=== PATIENT | male | born 1950 | race African-American/Black ===

== ENCOUNTER 2017-10-18 09:40 | Emergency (ER) | payer MEDICARE, BC ==
[2017-10-18 09:48] VITALS: BP 145/96
--- NOTE | 2017-10-18 10:05 | ER Document Report ---
ED Medical Screen (RME) - General Chief Complaint: Back Pain Stated Complaint: BLOOD IN URINE Time Seen by Provider: 10/18/17 09:56 Notes: RAPID MEDICAL EVALUATION DISCLOSURE I have seen this patient as part of a Rapid Medical Evaluation and, if applicable, placed any initially appropriate orders. The patient will be seen and fully evaluated, including a full history and physical exam, by a provider ( in Main ED or Fast Track) when a room becomes available. 67-year-old male PMH BPH status post TURP 2 years ago here with complaints of lower back pain and bloody urine (several blood clots) that he noticed yesterday morning. He reports that it reminded him of the issues he was having 2 years ago around the time of his TURP. He does not have any abdominal pain nausea vomiting dysuria frequency. He does report some heavy lifting 2 weeks ago but does not know if this is related. He denies prior history of prostate cancer however his PSA level was elevated on routine blood work ( has report with her) performed in August of this year. EXAM CTAB RRR No abdominal TTP No lumbar back TTP - Related Data Allergies/Adverse Reactions: iodine Allergy (Verified 10/18/17 09:42) Penicillins Allergy (Verified 10/18/17 09:42) Past Medical History - Past Medical History Cardiac Medical History: Reports: Hx Hypertension Musculoskeltal Medical History: Reports Hx Arthritis, Reports Hx Gout Past Surgical History: Reports: Hx Orthopedic Surgery - Holman's cyst surgery, Hx Vascular Surgery - Right ankle venous surgery - Immunizations Immunizations up to date: Yes Physical Exam - Vital signs Vitals: Temp Pulse Resp BP Pulse Ox 98.0 F 81 16 145/96 H 94 10/18/17 09:46 10/18/17 09:46 10/18/17 09:46 10/18/17 09:46 10/18/17 09:46 Course - Vital Signs Vital signs: Temp Pulse Resp BP Pulse Ox 98.0 F 81 16 145/96 H 94 10/18/17 09:46 10/18/17 09:46 10/18/17 09:46 10/18/17 09:46 10/18/17 09:46
--- NOTE | 2017-10-18 10:31 | ER Document Report ---
ED General - General Chief Complaint: Back Pain Stated Complaint: BLOOD IN URINE Time Seen by Provider: 10/18/17 09:56 Mode of Arrival: Ambulatory Information source: Patient - HPI Onset: Yesterday Onset/Duration: Sudden Quality of pain: Dull Severity: Mild - VERY VAGUE Associated symptoms: None. denies: Chills, Fever, Leg swelling, Nausea, Vomiting Exacerbated by: Denies Relieved by: Denies Similar symptoms previously: Yes - AFTER TURP Recently seen / treated by doctor: No - Related Data Allergies/Adverse Reactions: iodine Allergy (Verified 10/18/17 10:45) Penicillins Allergy (Verified 10/18/17 10:45) Past Medical History - General Information source: Patient - Social History Smoking Status: Former Smoker Cigarette use (# per day): No Chew tobacco use (# tins/day): No Frequency of alcohol use: None Drug Abuse: None Lives with: Spouse/Significant other Family History: Reviewed & Not Pertinent Patient has suicidal ideation: No Patient has homicidal ideation: No - Past Medical History Cardiac Medical History: Reports: Hx Hypertension Pulmonary Medical History: Reports: None Neurological Medical History: Reports: None Renal/ Medical History: Reports: Hx Benign Prostatic Hyperplasia. Denies: Hx Peritoneal Dialysis Malignancy Medical History: Reports None GI Medical History: Reports: None Musculoskeltal Medical History: Reports Hx Arthritis, Reports Hx Gout Psychiatric Medical History: Reports: None Past Surgical History: Reports: Hx Herniorrhaphy, Hx Orthopedic Surgery - Holman' s cyst surgery, Hx Vascular Surgery - Right ankle venous surgery - Immunizations Immunizations up to date: Yes Review of Systems - Review of Systems Constitutional: No symptoms reported EENT: No symptoms reported Cardiovascular: No symptoms reported Respiratory: No symptoms reported Gastrointestinal: No symptoms reported Genitourinary: See HPI Musculoskeletal: See HPI Skin: No symptoms reported Neurological/Psychological: No symptoms reported Physical Exam - Vital signs Vitals: Temp Pulse Resp BP Pulse Ox 98.0 F 81 16 145/96 H 94 10/18/17 09:46 10/18/17 09:46 10/18/17 09:46 10/18/17 09:46 10/18/17 09:46 Interpretation: Hypertensive. No: Tachycardic, Tachypneic, Febrile - General General appearance: Appears well, Alert In distress: None - HEENT Head: Normocephalic Eyes: Normal Conjunctiva: Normal Ears: Normal Nasal: Normal Mouth/Lips: Normal Mucous membranes: Normal Pharynx: Normal Neck: Normal - Respiratory Respiratory status: No respiratory distress - Cardiovascular Rhythm: Regular - Abdominal Inspection: Normal Distension: No distension - Back Back: Normal. No: CVA tenderness - Extremities General upper extremity: Normal inspection General lower extremity: Normal inspection. No: Tender, Edema - Neurological Neuro grossly intact: Yes Cognition: Normal Orientation: AAOx4 - Psychological Associated symptoms: Normal affect, Normal mood - Skin Skin Temperature: Warm Skin Moisture: Dry Skin Color: Normal Skin Turgor: Elastic Course - Re-evaluation Re-evalutation: 10/18/17 13:47 Patient remains relatively asymptomatic. He states the hematuria appears to be resolving. Results of laboratory and radiographic evaluation discussed with patient and spouse. He will call his urologist tomorrow for follow-up. - Vital Signs Vital signs: Temp Pulse Resp BP Pulse Ox 98.0 F 81 16 145/96 H 94 10/18/17 09:46 10/18/17 09:46 10/18/17 09:46 10/18/17 09:46 10/18/17 09:46 - Laboratory Result Diagrams: 10/18/17 10:20 10/18/17 10:20 Laboratory results interpreted by me: 10/18/17 10/18/17 10/18/17 10:20 10:20 10:20 MCH 26.9 L RDW 14.7 H Monocytes % 17.4 H Carbon Dioxide 32 H Est GFR (Non-Af Amer) 58 L Glucose 131 H Urine Protein 100 H Urine Glucose (UA) 50 H Urine Blood LARGE H Discharge - Discharge Clinical Impression: Hematuria Qualifiers: Hematuria type: gross Qualified Code(s): R31.0 - Gross hematuria BPH (benign prostatic hyperplasia) Qualifiers: Lower urinary tract symptom presence: unspecified whether lower urinary tract symptoms present Qualified Code(s): N40.0 - Benign prostatic hyperplasia without lower urinary tract symptoms Condition: Stable Disposition: HOME, SELF-CARE Instructions: Hematuria ([facility]) Additional Instructions: TAKE ANTIBIOTIC DIRECTED. DRINK PLENTY OF FLUIDS. TOMORROW, CALL YOUR UROLOGIST TO SEEK APPOINTMENT FOR FURTHER EVALUATION. YOU LIKELY WILL NEED A CYSTOSCOPY. RETURN TO E.R. IF PROBLEMS, ANY TIME. Prescriptions: Ciprofloxacin HCl [Cipro 500 mg Tablet] 500 mg PO BID #20 tablet
[2017-10-18 10:48] LABS: ABSOLUTE EOSINOPHILS # (AUTO) 0.3 10^3/uL (0.0-0.6); ABSOLUTE MONOCYTES (AUTO) 1.3 10^3/uL (0.1-1.4); ABSOLUTE NEUT (AUTO) 4.1 10^3/uL (1.7-8.2); BASOPHILS % (AUTO) 0.4 % (0-2); EOSINOPHILS % (AUTO) 3.9 % (0-6); HEMOGLOBIN 14.3 g/dL (13.5-17.0); LYMPHOCYTES % (AUTO) 25.3 % (13-45); MEAN CORPUSCULAR HEMOGLOBIN 26.9 pg (27.0-33.4); MEAN CORPUSCULAR HGB CONC 33.2 g/dL (32.0-36.0); MEAN CORPUSCULAR VOLUME 81 fl (80-97); MONOCYTES % (AUTO) 17.4 % (3-13); PLATELET COUNT 236 10^3/uL (150-450); RED BLOOD COUNT 5.29 10^6/uL (4.35-5.55); RED CELL DISTRIBUTION WIDTH 14.7 % (11.5-14.0); TOTAL CELLS COUNTED % (AUTO) 100 %; WHITE BLOOD COUNT 7.7 10^3/uL (4.0-10.5)
[2017-10-18 11:02] LABS: APPEARANCE,URINE CLEAR; BILIRUBIN,URINE NEGATIVE (NEGATIVE); COLOR,URINE RED; GLUCOSE, URINE 50 mg/dL (NEGATIVE); KETONES,URINE NEGATIVE (NEGATIVE); LEUKOCYTE ESTERASE,URINE NEGATIVE (NEGATIVE); NITRITE,URINE NEGATIVE (NEGATIVE); PROTEIN,URINE 100 mg/dL (NEGATIVE); URINE SPECIFIC GRAVITY 1.015; UROBILINOGEN,URINE NEGATIVE mg/dL (<2.0)
[2017-10-18] MEDS ORDERED: METHYLPREDNISOLONE INJ 125 MG/2 ML SDV IV ONE (11:05)
[2017-10-18] MEDS ORDERED: FAMOTIDINE INJ/PF 20 MG/2 ML SDV IV ONE (11:05)
[2017-10-18] MEDS ORDERED: DIPHENHYDRAMINE HCL 50 MG/ML VIAL IV ONE (11:06)
[2017-10-18 11:12] LABS: ALANINE AMINOTRANSFERASE 25 U/L (21-72); ALBUMIN 3.7 g/dL (3.5-5.0); ALKALINE PHOSPHATASE 91 U/L (38-126); ANION GAP 11 (5-19); ASPARTATE AMINO TRANSFERASE 19 U/L (17-59); BILIRUBIN,DIRECT 0.3 mg/dL (0.0-0.4); BILIRUBIN,TOTAL 0.4 mg/dL (0.2-1.3); BLOOD UREA NITROGEN 18 mg/dL (7-20); CARBON DIOXIDE 32 mmol/L (22-30); CHLORIDE 101 mmol/L (98-107); GLUCOSE 131 mg/dL (75-110); LIPASE 185.5 U/L (23-300); POTASSIUM 3.8 mmol/L (3.6-5.0); SODIUM 143.7 mmol/L (137-145); TOTAL PROTEIN 6.6 g/dL (6.3-8.2)
--- NOTE | 2017-10-18 12:21 | RADIOLOGY REPORT (SQ) ---
EXAM DESCRIPTION: CT ABD/PELVIS WITH IV ONLY COMPLETED DATE/TIME: 10/18/2017 11:57 am REASON FOR STUDY: hematuria back pain; eval cancer COMPARISON: None. TECHNIQUE: CT scan of the abdomen and pelvis performed using helical scanning technique with dynamic intravenous contrast injection. No oral contrast. Images reviewed with lung, soft tissue, and bone windows. Reconstructed coronal and sagittal MPR images reviewed. Delayed images for evaluation of the urinary system also acquired. All images stored on PACS. All CT scanners at this facility use dose modulation, iterative reconstruction, and/or weight based d osing when appropriate to reduce radiation dose to as low as reasonably achievable (ALARA). [facility]: Dose Right [facility]: CareDose [facility]: Dose Right [facility]: Teradose 4D [facility]: Dataslide CONTRAST TYPE AND DOSE: History as allergy at and. Patient was premedicated. Isovue 370. 100.1 mL . RENAL FUNCTION: Creatinine: 1.25. RADIATION DOSE: 1488.04 LIMITATIONS: None. FINDINGS: LOWER CHEST: Dependent atelectasis in lung bases. LIVER: No abnormality. SPLEEN: No abnormality. PANCREAS: No abnormality. GALLBLADDER: No abnormality. ADRENAL GLANDS: No abnormality. RIGHT KIDNEY AND URETER: No abnormality. No hydronephrosis. LEFT KIDNEY AND URETER: No abnormality. No hydronephrosis. AORTA AND VESSELS: No aneurysm. No dissection. Renal arteries, SMA, celiac without stenosis. Tortuos ity of the abdominal aorta and iliac vessels. RETROPERITONEUM: No retroperitoneal adenopathy, hemorrhage or masses. BOWEL AND PERITONEAL CAVITY: Umbilical hernia containing fat. Colonic diverticulosis. APPENDIX: Normal. PELVIS: PROSTATE: Marked prostatomegaly. PSA correlation would be useful. No abnormality is semina l vesicles. No pelvic adenopathy. Patent right inguinal ring containing fat. URINARY BLADDER: Min imal uniform thickening which could represent muscular hypertrophy. There is evidence of hyperdense filling defects within the bladder adjacent to the enlarged prostate noted on delayed scans. The pos sibility of mucosal irregularity or clot within the bladder cannot be excluded. ABDOMINAL WALL: No masses. No hernias. BONES: No significant or acute findings. No blastic or lytic lesions identified. OTHER: Bilateral small inguinal nodes. IMPRESSION: 1. Prostatomegaly. 2. Uniform thickening of bladder mucosa with muscular hypertrophy of the urinary bladder. 2. There is evidence of irregular filling defects within the urinary bladde r.The possibility of a mucosal abnormality or clot not excluded. Follow-up with urology consult. 3 . Right inguinal hernia containing fat. TECHNICAL DOCUMENTATION: JOB ID: [id number] Quality ID # [id number]: Final reports with documentation of one or more dose reduction techniques (e.g., Au tomated exposure control, adjustment of the mA and/or kV according to patient size, use of iterative reconstruction technique) 2010 [employer]- All Rights Reserved Reading location - IP/workstation name: [email or web address]
== END 2017-10-18 14:12 | disposition home or self-care (01) ==
LOC: ER 09:40
DX: R31.0 Gross hematuria (principal); N40.0 Benign prostatic hyperplasia without lower urinary tract symptoms; M54.9 Dorsalgia, unspecified; I10 Essential (primary) hypertension; Z88.0 Allergy status to penicillin; Z87.891 Personal history of nicotine dependence
CPT/HCPCS: 99284; 96374; 96375; 36415; 87086; 83690; 85025; 80053; 81001; 74177; J1200; J2930; S0028

== ENCOUNTER → 2020-02-07 | Outpatient (CLI) | payer MEDICARE, BC, OTHER ==
--- NOTE | 2020-02-07 15:26 | RADIOLOGY REPORT (SQ) ---
EXAM DESCRIPTION: CHEST PA/LATERAL IMAGES COMPLETED DATE/TIME: 02/07/2020 3:16 pm REASON FOR STUDY: PRE-OP COMPARISON: None. EXAM PARAMETERS: NUMBER OF VIEWS: two views TECHNIQUE: Digital Frontal and Lateral radiographic views of the chest acquired. RADIATION DOSE: NA LIMITATIONS: none FINDINGS: LUNGS AND PLEURA: No opacities, masses or pneumothorax. No pleural effusion. MEDIASTINUM AND HILAR STRUCTURES: No masses or contour abnormalities. HEART AND VASCULAR STRUCTURES: Heart size is normal. Descending thoracic aorta is tortuous. BONES: No acute findings. HARDWARE: None in the chest. OTHER: No other significant finding. IMPRESSION: NO SIGNIFICANT RADIOGRAPHIC FINDING IN THE CHEST. TECHNICAL DOCUMENTATION: JOB ID: [id number] 2010 [employer]- All Rights Reserved Reading location - IP/workstation name: [email or web address]
[2020-02-07 16:19] LABS: ABSOLUTE BASOPHILS # (AUTO) 0.1 10^3/uL (0.0-0.2); ABSOLUTE EOSINOPHILS # (AUTO) 0.2 10^3/uL (0.0-0.6); ABSOLUTE LYMPHOCYTES (AUTO) 1.7 10^3/uL (0.5-4.7); ABSOLUTE MONOCYTES (AUTO) 0.9 10^3/uL (0.1-1.4); ABSOLUTE NEUT (AUTO) 3.6 10^3/uL (1.7-8.2); BASOPHILS % (AUTO) 1.2 % (0-2); EOSINOPHILS % (AUTO) 2.6 % (0-6); HEMATOCRIT 42.4 % (37.9-51.0); HEMOGLOBIN 14.3 g/dL (13.5-17.0); MEAN CORPUSCULAR HEMOGLOBIN 26.7 pg (27.0-33.4); MEAN CORPUSCULAR HGB CONC 33.7 g/dL (32.0-36.0); MEAN CORPUSCULAR VOLUME 79 fl (80-97); MONOCYTES % (AUTO) 13.7 % (3-13); PLATELET COUNT 217 10^3/uL (150-450); RED BLOOD COUNT 5.34 10^6/uL (4.35-5.55); SEGMENTED NEUTROPHILS % (AUTO) 55.5 % (42-78); TOTAL CELLS COUNTED % (AUTO) 100 %; WHITE BLOOD COUNT 6.4 10^3/uL (4.0-10.5)
[2020-02-07 16:27] LABS: APPEARANCE,URINE CLEAR; BILIRUBIN,URINE NEGATIVE (NEGATIVE); COLOR,URINE YELLOW; GLUCOSE, URINE NEGATIVE (NEGATIVE); KETONES,URINE NEGATIVE (NEGATIVE); LEUKOCYTE ESTERASE,URINE NEGATIVE (NEGATIVE); NITRITE,URINE NEGATIVE (NEGATIVE); PROTEIN,URINE 100 mg/dL (NEGATIVE); URINE SPECIFIC GRAVITY 1.016; UROBILINOGEN,URINE NEGATIVE mg/dL (<2.0)
[2020-02-07 16:31] LABS: ANION GAP 10 (5-19); BLOOD UREA NITROGEN 14 mg/dL (7-20); CALCIUM 9.1 mg/dL (8.4-10.2); CARBON DIOXIDE 25 mmol/L (22-30); CHLORIDE 106 mmol/L (98-107); GLUCOSE 126 mg/dL (75-110); POTASSIUM 3.7 mmol/L (3.6-5.0)
--- NOTE | 2020-02-07 18:24 | EKG REPORT ---
SEVERITY:- ABNORMAL ECG - SINUS RHYTHM LEFT ATRIAL ABNORMALITY NONSPECIFIC T ABNORMALITIES, ANT-LAT LEADS BORDERLINE PROLONGED QT INTERVAL : Confirmed by: Yuriy Solano MD 07-Feb-2020 18:24:12
== END ==
LOC: OD 14:34
PROVIDERS: ATTEND Orthopaedic Surgery
DX: Z01.810 Encounter for preprocedural cardiovascular examination (principal); Z01.811 Encounter for preprocedural respiratory examination; Z01.812 Encounter for preprocedural laboratory examination; M17.11 Unilateral primary osteoarthritis, right knee
CPT/HCPCS: 36415; 71046; 80048; 81001; 85025; 93005; 93010

== ENCOUNTER 2020-02-29 05:30 | Inpatient (IN) | payer OTHER, MEDICARE, BC ==
[~2020-02-29 05:30] MED LIST: BUPIVACAINE INJ/PF LIPOSOME/PF 266 MG/20 ML SDV INJ PRN; CEFAZOLIN INJ 1 GM VIAL IV PRN; CEFAZOLIN INJ 1 GM VIAL ONE; IBUPROFEN 800 MG in NORMAL SALINE 250 ML IV PRN; OXYCODONE HCL SR 10 MG TABLET PO ONE; OXYCODONE HCL SR 10 MG TABLET PO PRN; PANTOPRAZOLE SODIUM 20 MG TABLET.DR PO ONE; PANTOPRAZOLE SODIUM 20 MG TABLET.DR PO PRN; VANCOMYCIN HCL 1,000 MG in DEXTROSE 5%-WATER 250 ML IV PRN
[2020-02-29] MEDS ORDERED: BUPIVACAINE HCL 0.25% /EPINEPHRINE INJ/PF 30 ML SDV ONE (07:59)
[2020-02-29] MEDS ORDERED: FENTANYL CITRATE INJ/PF 100 MCG/2 ML AMPUL ONE (08:02)
[2020-02-29] MEDS ORDERED: ONDANSETRON HCL INJ/PF 4 MG/2 ML SDV ONE ×2 (08:02→10:59)
[2020-02-29] MEDS ORDERED: LIDOCAINE 2% INJ-PF (20 MG/ML) 10 ML AMPUL ONE (08:02)
[2020-02-29] MEDS ORDERED: MIDAZOLAM 2 MG/2 ML INJ ONE (08:02)
[2020-02-29] MEDS ORDERED: TRANEXAMIC ACID INJ/PF 1,000 MG/10 ML SDV ONE ×2 (08:02→10:35)
[2020-02-29] MEDS ORDERED: PROPOFOL INJ 200 MG/20 ML VIAL IV ONE (08:03)
[2020-02-29] MEDS ORDERED: BUPIVACAINE HCL 0.5 % INJ/PF 30 ML SDV ONE (08:49)
[2020-02-29] MEDS ORDERED: ROPIVACAINE HCL 0.5% INJ/PF (5 MG/1 ML) 30 ML SDV ONE (08:51)
[2020-02-29] MEDS ORDERED: ZOLPIDEM TARTRATE 5 MG TABLET PO PRN (09:21)
[2020-02-29] MEDS ORDERED: MAG HYDROX/AL HYDROX/SIMETH SUSP 30 ML UDCUP PO PRN (09:21)
[2020-02-29] MEDS ORDERED: OXYCODONE HCL IR 5 MG TABLET PO PRN (09:21)
[2020-02-29] MEDS ORDERED: ONDANSETRON 4 MG TAB.RAPDIS PO PRN (09:21)
[2020-02-29] MEDS ORDERED: RINGERS SOLUTION,LACTATED 1,000 ML IV PRN (09:21)
[2020-02-29] MEDS ORDERED: DIPHENHYDRAMINE HCL 50 MG/ML VIAL IV PRN ×2 (09:21→10:24)
[2020-02-29] MEDS ORDERED: ACETAMINOPHEN 325 MG TABLET PO PRN (09:21)
[2020-02-29] MEDS ORDERED: TRANEXAMIC ACID INJ/PF 1,000 MG/10 ML SDV IV ONE ×2 (09:21→10:30)
--- NOTE | 2020-02-29 09:21 | Operative Report ---
Operative Report DATE OF SURGERY: 02/29/20 PREOPERATIVE DIAGNOSIS: Right knee arthritis OPERATION: Right knee arthroplasty SURGEON: STAR SINGLETARY ANESTHESIA: Spinal TISSUE REMOVED OR ALTERED: Bone to pathology ESTIMATED BLOOD LOSS: 75 PROCEDURE: Implants used: Femur: Dodge triathlon size 7 CR uncemented femur Tibia: 7 uncemented tibia Tibial liner: 9 mm CS insert Patella: 40 mm uncemented patella Procedure with the patient supine on the operating table the right the limb is prepped and draped in a sterile fashion. The limb was elevated for exsanguination and the tourniquet inflated to 280 torr. A standard midline median parapatellar approach the knee is taken. Access is gained to the femoral canal through the intercondylar notch. Intramedullary alignment instrumentation used to resect 10 mm of distal femur in 5 of valgus. Sizing guide indicated a size 7 femur. Appropriate cutting jig is then used to fashion anterior posterior and chamfer cuts. A trial reduction femurs performed and this is judged to be adequate. Attention was next turned to the tibia. Using an extra medullary alignment system 11 millimeters was resected off the lateral tibial plateau make up for a posterior medial tibial plateau defect. This is sized to a size 7 tibia. A trial reduction was now performed with a 7 femur and a 7 tibia using a 9 millimeters spacer. It is full extension and central patellofemoral tracking. The articular surface the patella was next resected using an oscillating saw. All trial implants were removed. Above implants are impacted into position. The tourniquet was deflated hemostasis obtained the wound is then closed in layers using interrupted Vicryl followed by henny. A sterile compressive dressing was applied and the patient returned to recovery room in satisfactory condition.
[2020-02-29] MEDS ORDERED: (PENDING PHARMACY ID) (Rosuvastatin Calcium [Rosuvastatin Calcium] 10 MG) PO SCH (10:00)
[2020-02-29] MEDS ORDERED: (PENDING PHARMACY ID) (Lisinopril [Lisinopril] 40 MG) PO SCH (10:00)
[2020-02-29] MEDS ORDERED: PROMETHAZINE HCL INJ 25 MG/1 ML VIAL IV PRN ×2 (10:24)
[2020-02-29] MEDS ORDERED: OXYCODONE-ACETAMINOPHEN 5-325 MG TABLET PO PRN ×2 (10:24)
[2020-02-29] MEDS ORDERED: MORPHINE SULFATE 10 MG/ML INJ IV PRN ×3 (10:24→10:30)
[2020-02-29] MEDS ORDERED: FENTANYL CITRATE INJ/PF 100 MCG/2 ML AMPUL IV PRN ×3 (10:24)
[2020-02-29] MEDS ORDERED: MEPERIDINE HCL/PF INJ 25 MG/1 ML DISP.SYRIN IV PRN (10:24)
--- NOTE | 2020-02-29 11:02 | RADIOLOGY REPORT (SQ) ---
EXAM DESCRIPTION: KNEE RIGHT 2 VIEWS IMAGES COMPLETED DATE/TIME: 02/29/2020 10:51 am REASON FOR STUDY: Post OP -Long Cassette in PACU M17.11 UNILATERAL PRIMARY OSTEOARTHRITIS, RIGHT KN EE COMPARISON: None. NUMBER OF VIEWS: Two view(s). TECHNIQUE: Digital radiographic images of the right knee post-procedure. LIMITATIONS: None. FINDINGS: BONES: No worrisome or unexpected findings post-procedure. DEVICE: Total knee arthroplasty. SOFT TISSUES: No worrisome findings. Expected postoperative soft tissue changes. IMPRESSION: SATISFACTORY POSTOPERATIVE RIGHT KNEE. TECHNICAL DOCUMENTATION: JOB ID: [id number] 2010 [employer]- All Rights Reserved Reading location - IP/workstation name: [email or web address]
[2020-02-29] MEDS: OXYCODONE HCL SR 10 MG TABLET PO SCH ×2 (13:32→21:16)
[2020-02-29] MEDS: ASPIRIN 81 MG TABLET, CHEWABLE PO SCH (13:33)
[2020-02-29] MEDS: ONDANSETRON HCL INJ/PF 4 MG/2 ML SDV IV PRN (14:46)
[2020-02-29] MEDS: IBUPROFEN 800 MG in NORMAL SALINE 250 ML IV SCH ×2 (15:17→21:17)
[2020-02-29] MEDS: PREGABALIN 75 MG CAPSULE PO SCH (17:58)
[2020-02-29] MEDS ORDERED: VANCOMYCIN HCL 1,000 MG in DEXTROSE 5%-WATER 250 ML IV ONE (21:21)
[2020-02-29] MEDS ORDERED: ATORVASTATIN CALCIUM 20 MG TABLET PO SCH (22:00)
[2020-03-01] MEDS ORDERED: PANTOPRAZOLE SODIUM 40 MG TABLET.DR PO SCH (06:00)
[2020-03-01] MEDS: PREGABALIN 75 MG CAPSULE PO SCH (06:00)
[2020-03-01] MEDS: IBUPROFEN 800 MG in NORMAL SALINE 250 ML IV SCH (06:01)
[2020-03-01 06:50] LABS: HEMATOCRIT 37.8 % (37.9-51.0); HEMOGLOBIN 12.7 g/dL (13.5-17.0); MEAN CORPUSCULAR HEMOGLOBIN 27.2 pg (27.0-33.4); MEAN CORPUSCULAR HGB CONC 33.6 g/dL (32.0-36.0); MEAN CORPUSCULAR VOLUME 81 fl (80-97); PLATELET COUNT 181 10^3/uL (150-450); RED BLOOD COUNT 4.67 10^6/uL (4.35-5.55); RED CELL DISTRIBUTION WIDTH 15.2 % (11.5-14.0); WHITE BLOOD COUNT 10.6 10^3/uL (4.0-10.5)
--- NOTE | 2020-03-01 06:58 | PDOC DISCHARGE SUMMARY ---
Impression - Admit/DC Date/PCP Admission Date/Primary Care Provider: 02/29/20 05:30 ALESHA GRANT NP Discharge Date: 03/01/20 - Discharge Diagnosis (1) Arthritis of right knee Is this a current diagnosis for this admission?: Yes - Additional Information Resuscitation Status: Full Code Discharge Diet: As Tolerated, Regular Discharge Activity: Balance Activity w/Rest, No Driving, No tub bath Referrals: ALESHA GRANT NP [Primary Care Provider] - Home Medications: Allopurinol [Zyloprim 100 mg Tablet] 100 mg PO DAILY 10/18/17 Amlodipine Besylate 10 mg PO DAILY 10/18/17 Aspirin [Aspirin 81 mg Chewable Tablet] 81 mg PO DAILY 10/18/17 Finasteride 5 mg PO DAILY 10/18/17 Lisinopril 40 mg PO DAILY 10/18/17 Rosuvastatin Calcium 10 mg PO DAILY 10/18/17 Tamsulosin HCl 0.4 mg PO DAILY 10/18/17 Cetirizine HCl [Zyrtec 10 mg Tablet] 10 mg PO DAILY 02/29/20 History of Present Illiness History of Present Illness: CLARENCE DOUGLAS is a 69 year old male The patient is a 69-year-old black male with progressive right knee pain and functional disability second osteoarthritis. Patient is now admitted for elective right knee arthroplasty. Hospital Course Hospital Course: The patient is admitted through the operating where he undergoes uncomplicated right knee arthroplasty. Is returned to the floor in satisfactory mission. He makes excellent progress with physical therapy ambulating on weightbearing as tolerated basis pain is modestly controlled with the current analgesic regimen. Compressive dressing is removed the first postoperative morning. Underlying OpSite dressing is clean dry and intact. There is minimal pedal edema. Distal neurovascular examination is intact. Physical Exam Vital Signs: Temp Pulse Resp BP Pulse Ox 36.6 C 82 17 143/79 H 98 02/29/20 19:57 02/29/20 19:57 02/29/20 19:57 02/29/20 19:57 02/29/20 21:33 Intake & Output 02/28/20 02/29/20 03/01/20 06:59 06:59 06:59 Intake Total 0 4509 Output Total 3459 Balance 0 1050 General appearance: PRESENT: no acute distress, mild distress Head exam: PRESENT: normocephalic Respiratory exam: PRESENT: unlabored Cardiovascular exam: PRESENT: RRR Pulses: PRESENT: +1 pedal pulses bilateral Vascular exam: PRESENT: normal capillary refill GI/Abdominal exam: PRESENT: soft Rectal exam: PRESENT: deferred Skin exam: PRESENT: dry, intact, warm. ABSENT: cyanosis, rash Results Laboratory Results: WBC 10.6 10^3/uL (4.0-10.5) H 03/01/20 06:00 RBC 4.67 10^6/uL (4.35-5.55) 03/01/20 06:00 Hgb 12.7 g/dL (13.5-17.0) L 03/01/20 06:00 Hct 37.8 % (37.9-51.0) L 03/01/20 06:00 MCV 81 fl (80-97) 03/01/20 06:00 MCH 27.2 pg (27.0-33.4) 03/01/20 06:00 MCHC 33.6 g/dL (32.0-36.0) 03/01/20 06:00 RDW 15.2 % (11.5-14.0) H 03/01/20 06:00 Plt Count 181 10^3/uL (150-450) 03/01/20 06:00 COVID-19 Source See comment 02/24/20 08:20 COVID-19 ([facility]) Not Detected (Not Detect) 02/24/20 08:20 Impressions: Knee X-Ray 02/29/20 09:23 IMPRESSION: SATISFACTORY POSTOPERATIVE RIGHT KNEE. Plan Plan of Treatment: Patient be discharged home in a weightbearing as tolerated amatory basis with home health services and DME. Follow-up Dr. Garcia and [facility] for [facility] in 2 weeks for staple removal. Time Spent: Less than 30 Minutes Stroke Is this a Stroke Patient?: No Stroke Pt being discharged on Anti-thrombolytic therapy?: Yes Acute Heart Failure Is this a Heart Failure Patient?: No
[2020-03-01 07:10] LABS: ANION GAP 9 (5-19); BLOOD UREA NITROGEN 10 mg/dL (7-20); CALCIUM 8.4 mg/dL (8.4-10.2); CARBON DIOXIDE 28 mmol/L (22-30); CHLORIDE 103 mmol/L (98-107); GLUCOSE 170 mg/dL (75-110); POTASSIUM 3.7 mmol/L (3.6-5.0)
[2020-03-01] MEDS: ONDANSETRON HCL INJ/PF 4 MG/2 ML SDV IV PRN (08:41)
[2020-03-01 09:24] VITALS: BP 155/85
[2020-03-01] MEDS: OXYCODONE HCL SR 10 MG TABLET PO SCH (09:38)
[2020-03-01] MEDS: ASPIRIN 81 MG TABLET, CHEWABLE PO SCH (09:40)
[2020-03-01] MEDS ORDERED: SENNOSIDES/DOCUSATE 8.6-50 MG 1 EACH TABLET PO SCH (10:00)
[2020-03-01] MEDS ORDERED: PRENATAL VITAMIN W DHA CAPSULE PO SCH (10:00)
[2020-03-01] MEDS ORDERED: AMLODIPINE BESYLATE 10 MG TABLET PO SCH (10:00)
[2020-03-01] MEDS ORDERED: ALLOPURINOL 100 MG TABLET PO SCH (10:00)
[2020-03-01] MEDS ORDERED: LISINOPRIL 10 MG TABLET PO SCH (10:00)
[2020-03-01] MEDS ORDERED: FINASTERIDE 5 MG TABLET PO SCH (10:00)
[2020-03-01] MEDS ORDERED: TAMSULOSIN HCL 0.4 MG CAP.SR.24H PO SCH (10:00)
== END 2020-03-01 11:34 | disposition home or self-care (01) | DRG 470 ==
LOC: INOR 05:30 → 4S 11:45
PROVIDERS: ADMIT Orthopaedic Surgery; ATTEND Orthopaedic Surgery
PROC: 0SRC0JA Replacement of Right Knee Joint with Synthetic Substitute, Uncemented, Open Approach (ICD-10-PCS; principal; 2020-02-29 07:30)
DX: M17.11 Unilateral primary osteoarthritis, right knee (principal); E78.00 Pure hypercholesterolemia, unspecified; I10 Essential (primary) hypertension; Z79.899 Other long term (current) drug therapy; Z79.82 Long term (current) use of aspirin
CPT/HCPCS: 01402; 36415; 80048; 85027; 87635; 88305; 88311; 94799; C1776; C9803; J0690; J1741; J2250; J2405; J2704; J2795; J3010; J3370; J3490; J7050; J7060; J7120; S0119